=== PATIENT | female | born 1985 | race American Indian/Alaskan Native ===

== ENCOUNTER 2017-03-15 18:55 | Emergency (ER) | payer SELFPAY ==
[2017-03-15] MEDS ORDERED: Naloxone 0.4 MG/ML SDV IVPUSH PRN (20:03)
[2017-03-15] MEDS ORDERED: Naloxone 0.4 MG/ML SDV IVPUSH ONE (20:41)
[2017-03-15 21:12] LABS: ACETAMINOPHEN < 10 ug/mL (10-30)
[2017-03-15 22:45] VITALS: BP 118/60
--- NOTE | 2017-03-16 03:15 | ER ---
DATE SEEN: 03/15/2017 CHIEF COMPLAINT: Overdose. HISTORY OF PRESENT ILLNESS: This is a 31-year-old female, who had an unknown amount of oxycodone from the daughter's bottle. This is because of migraines for 2 days and abdominal pain. She denies suicidal intent. She was brought in by private means after the EMT given her nasal Narcan. She has no further history. PAST MEDICAL HISTORY: Chronic back pain, migraine headaches, depression, abdominal migraines. MEDICATIONS: Reviewed. ALLERGIES: Reviewed. SOCIAL HISTORY: Does not smoke or drink. PHYSICAL EXAMINATION: VITAL SIGNS: Blood pressure is normal. Temperature is 98.4, oxygenation 98% on room air. HEAD: Normocephalic. EYES: Pupils are miotic but reactive to light. NECK: Supple. NEUROLOGIC: No focal findings. MENTAL STATUS: Flat affect but answers questions well. Lethargic. LABORATORY: Salicylate, acetaminophen negative. Ethyl alcohol negative. IMPRESSION: Narcotic overdose. PLAN: I gave her 0.4 mg of Narcan IV. We called the Poison Control who advised to observe her for 4 hours. The patient was intermittently awake, stable. Discharged to home after 4 hours. TIME SEEN: 1900 hours. /[id number] GURWINDER/MARJORIE
== END 2017-03-15 22:43 | disposition home or self-care (01) ==
LOC: FB.ED 18:55
DX: T40.2X1A Poisoning by other opioids, accidental (unintentional), initial encounter (principal); M54.9 Dorsalgia, unspecified; G89.29 Other chronic pain
CPT/HCPCS: 36415; 80053; 80305; 82950; 84443; 96374; 99283; 99284; G0480; J2310; 84702

== ENCOUNTER 2019-04-01 11:58 | Emergency (ER) | payer BC, MEDICAID ==
[2019-04-01] MEDS ORDERED: Aspirin 81 MG Tab.Chew PO ONE (12:30)
[2019-04-01] MEDS: Sodium Chloride 0.9% 10 ML Syringe FLUSH PRN ×2 (12:30→13:18)
[2019-04-01] MEDS: Nitroglycerin 0.4 MG Tab.SL SL PRN ×3 (12:34→14:02)
[2019-04-01] MEDS ORDERED: Morphine 4 MG/ML Syringe IVPUSH ONE (12:52)
[2019-04-01] MEDS ORDERED: Ondansetron 4 MG/2 ML SDV IVPUSH ONE (12:53)
--- NOTE | 2019-04-01 14:49 | EDM.PDOC ---
ED HPI GENERAL MEDICAL PROBLEM - General Chief Complaint: Chest Pain Stated Complaint: CHEST PAIN Time Seen by Provider: 04/01/19 12:05 Source of Information: Reports: Patient History Limitations: Reports: No Limitations - History of Present Illness INITIAL COMMENTS - FREE TEXT/NARRATIVE: 34-year-old female who reports that at approximately 11:30 AM today while she was driving her vehicle, she developed a pressure type pain all across her chest that radiated to both her arms, to her back and to her neck and was associated with some nausea and mild shortness of breath. She had no diaphoresis. She had no vomiting. The pain was rated by her as a 7/10. It did seem to be somewhat more noticeable when she took a deep breath but the pain was present when or what she was doing and it did not seem to vary with activity , movement or with palpation. She reports that she has had similar pains in the past that have been less severe lasting 1-2 hours. These have been ongoing for the past few months and they seemed to resolve on their own. These episodes do not appear to have any inciting event. She is had no prodromal symptoms. She has had no cough. She's had no trouble swallowing. There are no other associated signs or symptoms. There are no other modifying factors. 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 (see below) (Nothing) Chest Pain Score (Numeric/FACES): 9 - Related Data Allergies Allergy/AdvReac Type Severity Reaction Status Date / Time No Known Allergies Allergy Verified 03/15/17 19:08 Home Meds: Home Meds Phentermine HCl 15 mg PO DAILY 04/01/19 [History] metFORMIN [Glucophage] 500 mg PO DAILY 04/01/19 [History] Past Medical History Cardiovascular History: Reports: High Cholesterol (Dyslipidemia) 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; D&C in 2001 Musculoskeletal History: Reports: Back Pain, Chronic Endocrine/Metabolic History: Reports: Diabetes, Type II (Prediabetic), Obesity/ BMI 30+ - Infectious Disease History Infectious Disease History: Reports: Chicken Pox, Mumps - Past Surgical History Female Surgical History: Reports: Dilitation & Evacuation, Tubal Ligation Social & Family History - Family History Cardiac: Reports: [place] - Tobacco Use Smoking Status *Q: Current Every Day Smoker Years of Tobacco use: 15 Packs/Tins Daily: 0 - Caffeine Use Caffeine Use: Reports: Soda - Alcohol Use Alcohol Use History: No - Recreational Drug Use Recreational Drug Use: No - Living Situation & Occupation Living situation: Reports: Social History Comment: Here with her . ED ROS GENERAL - Review of Systems Review Of Systems: See Below Constitutional: Reports: No Symptoms HEENT: Reports: No Symptoms Respiratory: Reports: Shortness of Breath (Mild) Cardiovascular: Reports: Chest Pain, Lightheadedness Endocrine: Reports: No Symptoms GI/Abdominal: Reports: No Symptoms : Reports: No Symptoms Musculoskeletal: Reports: Neck Pain Skin: Reports: No Symptoms Neurological: Reports: Dizziness Hematologic/Lymphatic: Reports: No Symptoms Immunologic: Reports: No Symptoms ED EXAM, GENERAL - Physical Exam Exam: See Below Exam Limited By: Uncooperative General Appearance: Alert, No Apparent Distress Eye Exam: Bilateral Eye: EOMI, Normal Inspection, PERRL Ears: Normal External Exam Ear Exam: Bilateral Ear: Auricle Normal Nose: Normal Inspection, Normal Mucosa, No Blood Throat/Mouth: Normal Inspection, Normal Lips, Normal Teeth, Normal Oropharynx, Normal Voice, No Airway Compromise Head: Atraumatic, Normocephalic Neck: Normal Inspection, Supple, Non-Tender, Full Range of Motion Respiratory/Chest: No Respiratory Distress, Lungs Clear, Normal Breath Sounds, No Accessory Muscle Use, Chest Non-Tender Cardiovascular: Normal Peripheral Pulses, Regular Rate, Rhythm, No JVD Peripheral Pulses: 2+: Radial (L), Radial (R), Dorsalis Pedis (L), Dorsalis Pedis (R) GI/Abdominal: Normal Bowel Sounds, Soft, Non-Tender, No Organomegaly, Pelvis Stable, Other (Protuberant) Back Exam: Normal Inspection, Full Range of Motion Extremities: Normal Inspection, Normal Range of Motion, Non-Tender, No Pedal Edema, Normal Capillary Refill Neurological: Alert, Oriented, CN II-XII Intact, Normal Cognition, No Motor/ Sensory Deficits Psychiatric: Normal Affect Skin Exam: Warm, Dry, Intact, Normal Color, No Rash EKG INTERPRETATION EKG Date: 04/01/19 Time: 12:03 Rhythm: NSR Rate (Beats/Min): 80 [place]: Normal P-Wave: Present QRS: Normal ST-T: Normal QT: Prolonged (QTc) Comparison: NA - No Prior EKG EKG Interpretation Comments: Normal sinus rhythm with a rate of 80. There was a normal axis. There was a slightly prolonged QTC. No current of injury or ischemia. Otherwise normal EKG. Course - Vital Signs Last Recorded V/S: Last Vital Signs Temp 36.5 C 04/01/19 11:58 Pulse 65 04/01/19 17:12 Resp 18 04/01/19 17:12 BP 99/76 04/01/19 17:12 Pulse Ox 100 04/01/19 17:12 - Orders/Labs/Meds Orders: Active Orders 24 hr Category Date Time Status EKG Documentation Completion [RC] ASDIRECTED Care 04/01/19 12:29 Active Chest 1V Frontal [CR] Stat Exams 04/01/19 12:27 Taken Saline Lock Insert [OM.PC] Routine Oth 04/01/19 12:27 Ordered EKG 12 Lead [EK] Routine Ther 04/01/19 12:27 Ordered Labs: Laboratory Tests 04/01/19 04/01/19 04/01/19 Range/Units 12:55 12:55 12:55 WBC 10.3 (4.5-12.0) X10-3/uL RBC 4.44 (3.23-5.20) x10(6)uL Hgb 13.0 (11.5-15.5) g/dL Hct 39.0 (30.0-51.3) % MCV 87.9 (80-96) fL MCH 29.4 (27.7-33.6) pg MCHC 33.4 (32.2-35.4) g/dL RDW 13.2 (11.5-15.5) % Plt Count 261 (125-369) X10(3)uL MPV 10.0 (7.4-10.4) fL Neut % (Auto) 70.3 (46-82) % Lymph % (Auto) 23.8 (13-37) % [place] % (Auto) 4.5 (4-12) % Eos % (Auto) 1 (1.0-5.0) % Baso % (Auto) 1 (0-2) % Neut # (Auto) 7.2 (1.6-8.3) # Lymph # (Auto) 2.4 (0.6-5.0) # [place] # (Auto) 0.5 (0.0-1.3) # Eos # (Auto) 0.1 (0.0-0.8) # Baso # (Auto) 0.1 (0.0-0.2) # PT 9.4 (8.7-11.1) INR 0.97 (0.89-1.13) APTT 25.2 (24.4-33.2) SECONDS D-Dimer, Quantitative 0.22 (0.0-0.59) mg/LFEU Sodium 141 (135-145) mmol/L Potassium 3.9 (3.5-5.3) mmol/L Chloride 105 (100-110) mmol/L Carbon Dioxide 28 (21-32) mmol/L BUN 13 (7-18) mg/dL Creatinine 0.8 (0.55-1.02) mg/dL Est Cr Clr Drug Dosing 77.63 mL/min Estimated GFR (MDRD) > 60 (>60) BUN/Creatinine Ratio 16.3 (9-20) Glucose 152 H (80-116) mg/dL Calcium 8.8 (8.6-10.2) mg/dL Magnesium (1.8-2.5) mg/dL Total Bilirubin 0.2 (0.1-1.3) mg/dL AST 19 (5-25) IU/L ALT 44 H (12-36) U/L Alkaline Phosphatase 91 (56-112) IU/L Troponin I (<0.017-0.056) ng/mL Total Protein 7.1 (6.0-8.0) g/dL Albumin 3.3 L (3.5-5.2) g/dL Globulin 3.8 g/dL Albumin/Globulin Ratio 0.9 04/01/19 04/01/19 Range/Units 12:55 12:55 WBC (4.5-12.0) X10-3/uL RBC (3.23-5.20) x10(6)uL Hgb (11.5-15.5) g/dL Hct (30.0-51.3) % MCV (80-96) fL MCH (27.7-33.6) pg MCHC (32.2-35.4) g/dL RDW (11.5-15.5) % Plt Count (125-369) X10(3)uL MPV (7.4-10.4) fL Neut % (Auto) (46-82) % Lymph % (Auto) (13-37) % [place] % (Auto) (4-12) % Eos % (Auto) (1.0-5.0) % Baso % (Auto) (0-2) % Neut # (Auto) (1.6-8.3) # Lymph # (Auto) (0.6-5.0) # [place] # (Auto) (0.0-1.3) # Eos # (Auto) (0.0-0.8) # Baso # (Auto) (0.0-0.2) # PT (8.7-11.1) INR (0.89-1.13) APTT (24.4-33.2) SECONDS D-Dimer, Quantitative (0.0-0.59) mg/LFEU Sodium (135-145) mmol/L Potassium (3.5-5.3) mmol/L Chloride (100-110) mmol/L Carbon Dioxide (21-32) mmol/L BUN (7-18) mg/dL Creatinine (0.55-1.02) mg/dL Est Cr Clr Drug Dosing mL/min Estimated GFR (MDRD) (>60) BUN/Creatinine Ratio (9-20) Glucose (80-116) mg/dL Calcium (8.6-10.2) mg/dL Magnesium 2.0 (1.8-2.5) mg/dL Total Bilirubin (0.1-1.3) mg/dL AST (5-25) IU/L ALT (12-36) U/L Alkaline Phosphatase (56-112) IU/L Troponin I < 0.017 L (<0.017-0.056) ng/mL Total Protein (6.0-8.0) g/dL Albumin (3.5-5.2) g/dL Globulin g/dL Albumin/Globulin Ratio Meds: Medications Discontinued Medications Generic Name Dose Route Start Last Admin Trade Name Henryq PRN Reason Stop Dose Admin Acetaminophen 1,000 mg 04/01/19 16:26 04/01/19 16:40 Tylenol Extra Strength PO 04/01/19 16:27 1,000 mg ONETIME ONE Administration Aspirin 324 mg 04/01/19 12:30 04/01/19 12:30 Aspirin PO 04/01/19 12:31 324 mg ONETIME ONE Administration Morphine Sulfate 4 mg 04/01/19 12:52 04/01/19 13:14 Morphine IVPUSH 04/01/19 12:53 4 mg ONETIME ONE Administration Morphine Sulfate Confirm 04/01/19 13:11 04/01/19 13:30 Morphine Administered 04/01/19 13:12 Not Given Dose 4 mg .ROUTE .STK-MED ONE Nitroglycerin 0.4 mg 04/01/19 12:30 04/01/19 14:02 Nitrostat SL 0.4 mg Q5M PRN Administration Chest Pain Ondansetron HCl 4 mg 04/01/19 12:53 04/01/19 13:14 Zofran IVPUSH 04/01/19 12:54 4 mg ONETIME ONE Administration Sodium Chloride 10 ml 04/01/19 12:27 04/01/19 13:18 Saline Flush FLUSH 10 ml ASDIRECTED PRN Administration Keep Vein Open - Radiology Interpretation Free Text/Narrative:: Portable chest x-ray showed no acute disease. - Re-Assessments/Exams Free Text/Narrative Re-Assessment/Exam: 04/01/19 14:30: The patient is chest pain-free after 3 sublingual nitroglycerin. She does have a headache and some mild dizziness after some morphine that she had been given for the headache. She has no more nausea. There is no shortness of breath. Her family history, smoking history and history of diabetes makes her moderate risk for coronary artery disease. Her pain pattern is concerning for coronary syndrome/unstable angina and I feel that she will need admission for serial troponins and cardiac monitoring. There are no beds available at [facility] and therefore I will need to transfer the patient to another facility for these cares. I discussed this with the patient and her and they want me to discuss her case with [facility] in [place]. 04/01/19 15:06: I discussed the patient's case with Dr. Rachel, hospitalist medical concierge at [facility] in [place], and he is agreed to accept the patient in transfer. The patient will be transferred via ambulance to [facility] in [place] for direct admission. The patient remains chest, arm and neck pain-free. Departure - Departure Time of Disposition: 15:10 Disposition: DC/Tfer to [facility] 02 Reason for Transfer *Q: Other (No beds available at [facility] and patient needed radiology specialty services not at [facility]) Condition: Fair Clinical Impression: Chest pain Qualifiers: Chest pain type: unspecified Qualified Code(s): R07.9 - Chest pain, unspecified Referrals: PCP,None [Primary Care Provider] - Forms: ED Department Discharge - My Orders Last 24 Hours: My Active Orders 04/01/19 12:27 Chest 1V Frontal [CR] Stat Saline Lock Insert [OM.PC] Routine EKG 12 Lead [EK] Routine 04/01/19 12:29 EKG Documentation Completion [RC] ASDIRECTED - Assessment/Plan Last 24 Hours: My Active Orders 04/01/19 12:27 Chest 1V Frontal [CR] Stat Saline Lock Insert [OM.PC] Routine EKG 12 Lead [EK] Routine 04/01/19 12:29 EKG Documentation Completion [RC] ASDIRECTED
[2019-04-01] MEDS ORDERED: Acetaminophen 500 MG Tab PO ONE (16:26)
[2019-04-01 17:13] VITALS: BP 99/76
== END 2019-04-01 17:10 ==
LOC: FB.ED 11:58
DX: R07.89 Other chest pain (principal); E11.9 Type 2 diabetes mellitus without complications; F17.210 Nicotine dependence, cigarettes, uncomplicated; Z79.84 Long term (current) use of oral hypoglycemic drugs; Z79.899 Other long term (current) drug therapy
CPT/HCPCS: 36415; 71045; 80053; 83735; 84484; 85025; 85379; 85610; 85730; 93005; 96374; 96375; 99285-25; A9270-GY; J2270; J2405